=== PATIENT | male | born 1985 | race African-American/Black ===

== ENCOUNTER 2021-06-05 11:18 | Inpatient (IN) | payer OTHER ==
[~2021-06-05 11:18] MED LIST: diazePAM 5 MG TABLET PO SCH
[2021-06-05 11:50] VITALS: BMI 28.3
[2021-06-05] MEDS ORDERED: ACETAMINOPHEN 325 MG TABLET (FP) PO PRN (12:12)
[2021-06-05] MEDS ORDERED: MENTHOL/PHENOL 1 EACH UD MM PRN (12:12)
[2021-06-05] MEDS ORDERED: MAG HYDROX/AL HYDROX/SIMETH 30 ML UNIT-DOSE CUP PO PRN (12:12)
[2021-06-05] MEDS ORDERED: BISMUTH SUBSALICYLATE 262 MG/15 ML BTL PO PRN (12:12)
[2021-06-05] MEDS ORDERED: diazePAM 5 MG TABLET PO PRN (12:12)
[2021-06-05] MEDS ORDERED: MAGNESIUM CITRATE 300 ML BOTTLE PO PRN (12:12)
[2021-06-05] MEDS ORDERED: MAGNESIUM HYDROX 2400MG/30ML ORAL SUSPENSION 30 ML CUP PO PRN (12:12)
[2021-06-05] MEDS ORDERED: ONDANSETRON *ODT* 4 MG TABLET SL PRN (12:12)
[2021-06-05] MEDS ORDERED: NICOTINE 10 MG CARTRIDGE (INHALER) IH PRN (12:12)
[2021-06-05] MEDS: hydrOXYzine PAMOATE 25 MG CAPSULE (FP) PO SCH ×3 (13:34→22:37)
[2021-06-05] MEDS: PRENATAL VITAMINS W/ FOLIC ACID TABLET (FP) PO SCH (13:36)
[2021-06-05 16:55] LABS: MCH 24.6 pg (25.7-33.7); MEAN CELL VOLUME 76.8 fl (80-96); MEAN PLT VOLUME 8.1 fl (7.5-11.1); PLATELET COUNT 242 10^3/uL (134-434); RBC 6.12 M/mm3 (4.00-5.60); RDW 18.6 % (11.9-15.9); WHITE BLOOD COUNT 4.7 K/mm3 (4.0-10.0)
[2021-06-05 16:57] LABS: CALCIUM 9.6 mg/dL (8.5-10.1)
[2021-06-05 16:58] LABS: ALBUMIN 3.7 g/dl (3.4-5.0); BLOOD UREA NITROGEN 7.1 mg/dL (7-18)
[2021-06-05 17:03] LABS: BILIRUBIN,TOTAL 0.6 mg/dL (0.2-1); TOT PROT 7.2 g/dl (6.4-8.2)
[2021-06-05] MEDS: METHOCARBAMOL 500 MG TABLET PO PRN (17:12)
[2021-06-05 18:04] LABS: HIV INTERPRETATION NEGATIVE (NEGATIVE)
[2021-06-05] MEDS: THIAMINE HCL 100 MG TABLET (FP) PO SCH (22:37)
[2021-06-05] MEDS: MELATONIN 5 MG TABLETS PO SCH ×2 (22:37→22:39)
[2021-06-06] MEDS: hydrOXYzine PAMOATE 25 MG CAPSULE (FP) PO SCH ×6 (06:39→22:56)
[2021-06-06] MEDS: METHOCARBAMOL 500 MG TABLET PO PRN ×3 (07:37→22:56)
[2021-06-06] MEDS: ACETAMINOPHEN 325 MG TABLET (FP) PO PRN ×2 (07:37→18:05)
[2021-06-06] MEDS: IBUPROFEN 400 MG TABLET (FP) PO PRN (10:31)
[2021-06-06] MEDS: PRENATAL VITAMINS W/ FOLIC ACID TABLET (FP) PO SCH (10:32)
[2021-06-06] MEDS ORDERED: diazePAM 5 MG TABLET PO ONE (17:38)
[2021-06-06] MEDS: MELATONIN 5 MG TABLETS PO SCH (22:55)
[2021-06-06] MEDS: THIAMINE HCL 100 MG TABLET (FP) PO SCH (22:55)
[2021-06-06] MEDS: diazePAM 5 MG TABLET PO SCH (22:56)
[2021-06-07] MEDS: diazePAM 5 MG TABLET PO SCH ×4 (05:48→22:31)
[2021-06-07] MEDS: hydrOXYzine PAMOATE 25 MG CAPSULE (FP) PO SCH ×5 (05:48→22:55)
[2021-06-07] MEDS ORDERED: diazePAM 5 MG TABLET PO SCH (06:00)
[2021-06-07] MEDS: PRENATAL VITAMINS W/ FOLIC ACID TABLET (FP) PO SCH (10:29)
[2021-06-07] MEDS: METHOCARBAMOL 500 MG TABLET PO PRN (17:41)
[2021-06-07] MEDS ORDERED: diphenhydrAMINE HCL 25 MG CAPSULE (FP) PO ONE (20:11)
[2021-06-07] MEDS: THIAMINE HCL 100 MG TABLET (FP) PO SCH (22:31)
[2021-06-07] MEDS: MELATONIN 5 MG TABLETS PO SCH (22:31)
[2021-06-07] MEDS: IBUPROFEN 400 MG TABLET (FP) PO PRN (22:32)
[2021-06-08] MEDS: METHOCARBAMOL 500 MG TABLET PO PRN ×2 (04:09→22:23)
[2021-06-08] MEDS ORDERED: diazePAM 5 MG TABLET PO SCH (06:00)
[2021-06-08] MEDS: diazePAM 5 MG TABLET PO SCH ×3 (07:54→22:24)
[2021-06-08] MEDS: hydrOXYzine PAMOATE 25 MG CAPSULE (FP) PO SCH (07:55)
[2021-06-08] MEDS ORDERED: COLLOIDAL OATMEAL 1 BAR EACH TP PRN (08:55)
[2021-06-08] MEDS: hydrOXYzine PAMOATE 25 MG CAPSULE (FP) PO PRN ×2 (10:04→15:17)
[2021-06-08] MEDS: diazePAM 5 MG TABLET PO PRN (10:05)
[2021-06-08] MEDS: PRENATAL VITAMINS W/ FOLIC ACID TABLET (FP) PO SCH (10:06)
[2021-06-08] MEDS: NYSTATIN/TRIAMCINOLONE TOPICAL OINTMENT 15 GM TUBE TP SCH ×2 (12:30→22:26)
[2021-06-08] MEDS: MIRTAZAPINE 15 MG TABLET (FP) PO SCH (22:23)
[2021-06-08] MEDS: THIAMINE HCL 100 MG TABLET (FP) PO SCH (22:23)
[2021-06-08] MEDS: MELATONIN 5 MG TABLETS PO SCH (22:23)
[2021-06-08] MEDS: PRAZOSIN HCL 2 MG CAPSULE PO SCH (23:52)
[2021-06-09] MEDS: diazePAM 5 MG TABLET PO SCH ×2 (05:57→17:02)
[2021-06-09] MEDS ORDERED: diazePAM 5 MG TABLET PO ONE (06:00)
[2021-06-09] MEDS: diazePAM 5 MG TABLET PO PRN ×3 (10:02→22:16)
[2021-06-09] MEDS: NYSTATIN/TRIAMCINOLONE TOPICAL OINTMENT 15 GM TUBE TP SCH ×2 (10:03→22:11)
[2021-06-09] MEDS: FLUoxetine HCL 20 MG CAPSULE PO SCH (10:03)
[2021-06-09] MEDS: PRENATAL VITAMINS W/ FOLIC ACID TABLET (FP) PO SCH (10:03)
[2021-06-09] MEDS: METHOCARBAMOL 500 MG TABLET PO PRN (17:03)
[2021-06-09] MEDS: hydrOXYzine PAMOATE 25 MG CAPSULE (FP) PO PRN (17:19)
[2021-06-09] MEDS ORDERED: PRAZOSIN HCL 1 MG CAPSULE PO SCH (22:00)
[2021-06-09] MEDS: MELATONIN 5 MG TABLETS PO SCH (22:11)
[2021-06-09] MEDS: MIRTAZAPINE 15 MG TABLET (FP) PO SCH (22:12)
[2021-06-09] MEDS: THIAMINE HCL 100 MG TABLET (FP) PO SCH (22:12)
[2021-06-09] MEDS: PRAZOSIN HCL 2 MG CAPSULE PO SCH (23:25)
[2021-06-10] MEDS ORDERED: diazePAM 5 MG TABLET PO ONE (06:00)
[2021-06-10 06:34] VITALS: TEMP 97.1
[2021-06-10 08:56] VITALS: BP 123/79; PULSE 94
[2021-06-10] MEDS: NYSTATIN/TRIAMCINOLONE TOPICAL OINTMENT 15 GM TUBE TP SCH (09:18)
[2021-06-10] MEDS: FLUoxetine HCL 20 MG CAPSULE PO SCH (09:18)
[2021-06-10] MEDS: METHOCARBAMOL 500 MG TABLET PO PRN (09:18)
[2021-06-10] MEDS: hydrOXYzine PAMOATE 25 MG CAPSULE (FP) PO PRN (09:20)
[2021-06-10] MEDS: PRENATAL VITAMINS W/ FOLIC ACID TABLET (FP) PO SCH (09:21)
[2021-06-10] MEDS ORDERED: PRAZOSIN HCL 1 MG CAPSULE PO SCH (09:56)
== END 2021-06-10 11:16 | disposition other institution (70) | DRG 774 ==
LOC: YASAS 11:18 → UNDOADMIN 11:59 → Y6N 11:59 → Y3N 12:12
PROVIDERS: ADMIT Allergy & Immunology; ATTEND Allergy & Immunology
PROC: HZ2ZZZZ Detoxification Services for Substance Abuse Treatment (ICD-10-PCS; principal; 2021-06-05)
DX: F10.230 Alcohol dependence with withdrawal, uncomplicated (principal); F14.20 Cocaine dependence, uncomplicated; F16.20 Hallucinogen dependence, uncomplicated; F12.20 Cannabis dependence, uncomplicated; F17.210 Nicotine dependence, cigarettes, uncomplicated; F19.24 Other psychoactive substance dependence with psychoactive substance-induced mood disorder; F41.9 Anxiety disorder, unspecified; F32.A Depression, unspecified; F43.10 Post-traumatic stress disorder, unspecified; F41.0 Panic disorder [episodic paroxysmal anxiety]; L85.3 Xerosis cutis; Z91.14 Patient's other noncompliance with medication regimen; Z88.8 Allergy status to other drugs, medicaments and biological substances; Z87.828 Personal history of other (healed) physical injury and trauma; Z59.01 Sheltered homelessness; Z56.0 Unemployment, unspecified
CPT/HCPCS: 36415; 80053; 85027; 86780; 87389; C9803; U0003; U0005

== ENCOUNTER 2021-08-07 12:12 | Inpatient (IN) | payer OTHER ==
[2021-08-07] MEDS ORDERED: IBUPROFEN 400 MG TABLET (FP) PO PRN (12:43)
[2021-08-07] MEDS ORDERED: BISMUTH SUBSALICYLATE 524 MG/30 ML PO PRN (12:43)
[2021-08-07] MEDS ORDERED: MAG HYDROX/AL HYDROX/SIMETH 30 ML UNIT-DOSE CUP PO PRN (12:43)
[2021-08-07] MEDS ORDERED: chlordiazePOXIDE HCL 25 MG CAPSULE PO PRN (12:43)
[2021-08-07] MEDS ORDERED: MAGNESIUM HYDROX 2400MG/30ML ORAL SUSPENSION 30 ML CUP PO PRN (12:43)
[2021-08-07] MEDS ORDERED: NICOTINE 10 MG CARTRIDGE (INHALER) IH PRN (12:43)
[2021-08-07] MEDS ORDERED: ONDANSETRON *ODT* 4 MG TABLET SL PRN (12:43)
[2021-08-07] MEDS ORDERED: MAGNESIUM CITRATE 300 ML BOTTLE PO PRN (12:43)
[2021-08-07] MEDS ORDERED: ACETAMINOPHEN 325 MG TABLET (FP) PO PRN ×2 (12:43)
[2021-08-07] MEDS ORDERED: MENTHOL/PHENOL 1 EACH UD MM PRN (12:43)
[2021-08-07 12:58] VITALS: BMI 30.1
[2021-08-07 14:57] LABS: HEMATOCRIT 48.6 % (35.4-49); HEMOGLOBIN 16.1 GM/dL (11.7-16.9); MCH 24.2 pg (25.7-33.7); MCHC 33.2 g/dl (32.0-35.9); MEAN PLT VOLUME 7.4 fl (7.5-11.1); PLATELET COUNT 243 10^3/uL (134-434); RBC 6.66 M/mm3 (4.00-5.60); WHITE BLOOD COUNT 7.1 K/mm3 (4.0-10.0)
[2021-08-07 15:00] LABS: CALCIUM 9.8 mg/dL (8.5-10.1)
[2021-08-07 15:03] LABS: ALBUMIN 4.3 g/dl (3.4-5.0); BLOOD UREA NITROGEN 10.6 mg/dL (7-18)
[2021-08-07 15:06] LABS: CREATININE 1.1 mg/dL (0.55-1.3)
[2021-08-07 15:08] LABS: TOT PROT 8.2 g/dl (6.4-8.2)
[2021-08-07 15:09] LABS: BILIRUBIN,TOTAL 0.8 mg/dL (0.2-1)
[2021-08-07] MEDS ORDERED: LORazepam 1 MG TABLET PO PRN (17:38)
[2021-08-07] MEDS ORDERED: LORazepam 2 MG TABLET PO ONE (17:38)
[2021-08-07] MEDS: hydrOXYzine PAMOATE 25 MG CAPSULE (FP) PO SCH ×3 (18:58→23:14)
[2021-08-07] MEDS: NICOTINE 14 MG/24 HOURS TOPICAL PATCH TD SCH (18:58)
[2021-08-07] MEDS: chlordiazePOXIDE HCL 25 MG CAPSULE PO SCH ×2 (18:59→19:43)
[2021-08-07] MEDS: PRENATAL VITAMINS W/ FOLIC ACID TABLET (FP) PO SCH (19:30)
[2021-08-07] MEDS ORDERED: PRAZOSIN HCL 2 MG CAPSULE PO SCH (22:00)
[2021-08-07] MEDS ORDERED: MELATONIN 5 MG TABLETS PO SCH (22:00)
[2021-08-07] MEDS: THIAMINE HCL 100 MG TABLET (FP) PO SCH (23:14)
[2021-08-07] MEDS: MIRTAZAPINE 15 MG TABLET (FP) PO SCH (23:14)
[2021-08-07] MEDS: PRAZOSIN HCL 1 MG CAPSULE PO SCH (23:14)
[2021-08-07] MEDS: LORazepam 2 MG TABLET PO SCH (23:14)
[2021-08-08] MEDS: PRAZOSIN HCL 1 MG CAPSULE PO SCH ×2 (06:55→22:35)
[2021-08-08] MEDS: hydrOXYzine PAMOATE 25 MG CAPSULE (FP) PO SCH ×5 (06:55→22:35)
[2021-08-08] MEDS: LORazepam 2 MG TABLET PO SCH ×4 (06:55→22:48)
[2021-08-08] MEDS: NICOTINE 14 MG/24 HOURS TOPICAL PATCH TD SCH (10:33)
[2021-08-08] MEDS: PRENATAL VITAMINS W/ FOLIC ACID TABLET (FP) PO SCH (10:33)
[2021-08-08] MEDS: FLUoxetine HCL 20 MG CAPSULE PO SCH (10:33)
[2021-08-08] MEDS: THIAMINE HCL 100 MG TABLET (FP) PO SCH (22:35)
[2021-08-08] MEDS: METHOCARBAMOL 500 MG TABLET PO PRN (22:35)
[2021-08-08] MEDS: MIRTAZAPINE 15 MG TABLET (FP) PO SCH (22:35)
[2021-08-09] MEDS ORDERED: chlordiazePOXIDE HCL 25 MG CAPSULE PO SCH (05:00)
[2021-08-09] MEDS: LORazepam 1 MG TABLET PO SCH ×4 (07:16→22:00)
[2021-08-09] MEDS: hydrOXYzine PAMOATE 25 MG CAPSULE (FP) PO SCH ×5 (07:17→21:53)
[2021-08-09] MEDS: PRENATAL VITAMINS W/ FOLIC ACID TABLET (FP) PO SCH (10:14)
[2021-08-09] MEDS: FLUoxetine HCL 20 MG CAPSULE PO SCH (10:15)
[2021-08-09] MEDS: NICOTINE 14 MG/24 HOURS TOPICAL PATCH TD SCH ×2 (10:17→17:56)
[2021-08-09] MEDS: THIAMINE HCL 100 MG TABLET (FP) PO SCH (21:52)
[2021-08-09] MEDS: PRAZOSIN HCL 1 MG CAPSULE PO SCH (21:53)
[2021-08-09] MEDS: MIRTAZAPINE 15 MG TABLET (FP) PO SCH (21:53)
[2021-08-10] MEDS ORDERED: chlordiazePOXIDE HCL 10 MG CAPSULE PO PRN
[2021-08-10] MEDS ORDERED: chlordiazePOXIDE HCL 10 MG CAPSULE PO SCH (05:00)
[2021-08-10] MEDS: hydrOXYzine PAMOATE 25 MG CAPSULE (FP) PO SCH ×2 (06:32→10:20)
[2021-08-10] MEDS: LORazepam 0.5 MG TABLET PO SCH ×4 (06:33→22:20)
[2021-08-10] MEDS: LORazepam 0.5 MG TABLET PO PRN ×2 (08:26→14:29)
[2021-08-10] MEDS: PRENATAL VITAMINS W/ FOLIC ACID TABLET (FP) PO SCH (10:19)
[2021-08-10] MEDS: NICOTINE 14 MG/24 HOURS TOPICAL PATCH TD SCH (10:20)
[2021-08-10] MEDS: FLUoxetine HCL 20 MG CAPSULE PO SCH (10:20)
[2021-08-10] MEDS ORDERED: hydrOXYzine PAMOATE 25 MG CAPSULE (FP) PO PRN (11:55)
[2021-08-10] MEDS: METHOCARBAMOL 500 MG TABLET PO PRN (18:01)
[2021-08-10] MEDS: MIRTAZAPINE 15 MG TABLET (FP) PO SCH (22:20)
[2021-08-10] MEDS: THIAMINE HCL 100 MG TABLET (FP) PO SCH (22:20)
[2021-08-10] MEDS: PRAZOSIN HCL 1 MG CAPSULE PO SCH (22:20)
[2021-08-11] MEDS ORDERED: LORazepam 0.5 MG TABLET PO ONE (05:00)
[2021-08-11] MEDS ORDERED: chlordiazePOXIDE HCL 10 MG CAPSULE PO SCH (05:00)
[2021-08-11 08:46] VITALS: BP 134/78; PULSE 91; TEMP 97.7
[2021-08-11] MEDS: PRENATAL VITAMINS W/ FOLIC ACID TABLET (FP) PO SCH (10:10)
[2021-08-11] MEDS: NICOTINE 14 MG/24 HOURS TOPICAL PATCH TD SCH (10:10)
[2021-08-11] MEDS: FLUoxetine HCL 20 MG CAPSULE PO SCH (10:10)
[2021-08-12] MEDS ORDERED: chlordiazePOXIDE HCL 10 MG CAPSULE PO ONE (05:00)
== END 2021-08-11 10:20 | disposition home or self-care (01) | DRG 774 ==
LOC: YASAS 12:12 → Y3N 17:00
PROVIDERS: ADMIT Allergy & Immunology; ATTEND Allergy & Immunology
PROC: HZ2ZZZZ Detoxification Services for Substance Abuse Treatment (ICD-10-PCS; principal; 2021-08-07)
DX: F10.230 Alcohol dependence with withdrawal, uncomplicated (principal); F14.20 Cocaine dependence, uncomplicated; F12.20 Cannabis dependence, uncomplicated; F16.10 Hallucinogen abuse, uncomplicated; F17.210 Nicotine dependence, cigarettes, uncomplicated; F19.24 Other psychoactive substance dependence with psychoactive substance-induced mood disorder; F41.9 Anxiety disorder, unspecified; F43.10 Post-traumatic stress disorder, unspecified; I10 Essential (primary) hypertension; R74.01 Elevation of levels of liver transaminase levels; Z87.828 Personal history of other (healed) physical injury and trauma; Z88.8 Allergy status to other drugs, medicaments and biological substances; Z91.018 Allergy to other foods; Z56.0 Unemployment, unspecified; Z59.01 Sheltered homelessness
CPT/HCPCS: 36415; 80053; 85027; 86780; C9803; U0003; U0005